=== PATIENT | male | born 1995 | race Caucasian/White ===

== ENCOUNTER 2016-05-24 00:13 | Emergency (ER) | payer OTHER ==
[~2016-05-24] VITALS: Ht 177.8 cm; Wt 76.2 kg
[2016-05-24 00:16] VITALS: TEMP 36.6; Ht 177.8 cm; Wt 76.2 kg
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
[2016-05-24 00:54] LABS: URINE APPEARANCE CLEAR (CLEAR); URINE BILIRUBIN NEG (NEG); URINE COLOR YELLOW; URINE NITRITE NEG (NEG); URINE SPECIFIC GRAVITY 1.005 (1.000-1.030); UROBILINOGEN NEG (NEG)
[2016-05-24 00:54] LABS: BUN/CREATININE RATIO 9.1 (10-20); CALCIUM 9.3 mg/dl (8.5-10.1); CREATININE 1.1 mg/dl (0.60-1.40); POTASSIUM 3.4 mmol/L (3.5-5.1)
[2016-05-24 00:58] LABS: MANUAL MICROSCOPIC REQUIRED? NO; REVIEW REQ? NO
[2016-05-24 01:17] LABS: BENZODIAZEPINE, URINE NEG (NEG); COCAINE,URINE NEG (NEG); PHENCYCLIDINE, URINE NEG (NEG)
[2016-05-24] MEDS ORDERED: CETI10TA84 PO (01:31)
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
[2016-05-24 07:54] VITALS: BP 136/96; PULSE 96; O2SAT 97
== END 2016-05-24 07:55 | disposition home or self-care (01) ==
LOC: EDBD 00:13 → C.EDA 00:15
DX: T51.0X1A Toxic effect of ethanol, accidental (unintentional), initial encounter (principal); S09.93XA Unspecified injury of face, initial encounter; X58.XXXA Exposure to other specified factors, initial encounter; Y92.169 Unspecified place in school dormitory as the place of occurrence of the external cause

== ENCOUNTER 2017-04-13 16:46 | Emergency (ER) | payer OTHER ==
[~2017-04-13] VITALS: Ht 177.8 cm; Wt 80.3 kg
[~2017-04-13 16:46] MED LIST: CETI10TA84 PO
[2017-04-13 17:09] VITALS: BP 144/93; PULSE 78; TEMP 37; O2SAT 99; Ht 177.8 cm; Wt 80.3 kg
[2017-04-13] MEDS ORDERED: CNC/36 PO (18:08)
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
== END 2017-04-13 19:05 | disposition home or self-care (01) ==
LOC: C.EDB 16:49 → C.EDD 19:05
DX: S06.0X9A Concussion with loss of consciousness of unspecified duration, initial encounter (principal); T76.11XA Adult physical abuse, suspected, initial encounter; Y04.0XXA Assault by unarmed brawl or fight, initial encounter; Y92.039 Unspecified place in apartment as the place of occurrence of the external cause; S00.93XA Contusion of unspecified part of head, initial encounter; S05.10XA Contusion of eyeball and orbital tissues, unspecified eye, initial encounter; R51 Headache; R42 Dizziness and giddiness; F17.200 Nicotine dependence, unspecified, uncomplicated; F12.10 Cannabis abuse, uncomplicated